=== PATIENT | male | born 1950 | race Caucasian/White ===

== ENCOUNTER 2024-11-14 18:21 | Outpatient (REF) | payer MEDICARE, SELFPAY ==
[2024-11-14 20:56] LABS: Abs Immature Grans 0.01 10^3/uL (0.0-0.06); HCT 39.4 % (40.0-50.0); HGB 13.6 g/dL (13.5-17.5); Immature Grans % 0.2 %; MCH 29.6 pg (27.0-33.0); MCHC 34.5 % (32.0-36.0); MCV 86 fL (80-95); MPV 11.1 fL (8.0-11.0); Platelet Count 126 10^3/uL (130-400); RBC 4.59 10^6/uL (4.36-5.78); RDW 12.6 % (11.8-14.1); RDW-SD 39.3 fL; WBC 4.44 10^3/uL (4.4-10.8)
[2024-11-14 21:20] LABS: Hemoglobin A1C 11.9 % (<5.7)
[2024-11-14 21:35] LABS: ALT 46 U/L (16-63); AST 35 U/L (15-37); Albumin 3.8 g/dL (3.4-5.0); Alkaline Phosphatase 78 U/L (46-116); Anion Gap 5.9 mmol/L (3-11); BUN 22 mg/dL (7-18); Bilirubin, Total 0.7 mg/dL (0.2-1.0); CO2 27.1 mmol/L (21.0-32.0); Calcium 8.9 mg/dL (8.5-10.1); Calculated LDL 89 mg/dL (<100); Chloride 101 mmol/L (98-107); Cholesterol 170 mg/dL (<200); Estimated GFR 44.65 (mL/min/1.73m2); Folate > 20.0 ng/mL (8.6-20.0); HDL Cholesterol 36 mg/dL (>or=40); Potassium 4.2 mmol/L (3.5-5.1); Sodium 134 mmol/L (136-145); TSH (W/Ref FT4) 1.52 uIU/mL (0.36-3.74); Total Protein 7.3 g/dL (6.4-8.2); Triglyceride 227 mg/dL (<150); Vitamin B12 707 pg/mL (193-986)
[2024-11-14 21:36] LABS: Glucose 399 mg/dL (74-106)
[2024-11-18 09:59] LABS: Syphilis Serology (RPR) Negative (Negative)
== END 2024-11-14 18:22 | disposition home or self-care (01) ==
LOC: NCHCN 18:21
PROVIDERS: Visit Provider Family Medicine
DX: E11.65 Type 2 diabetes mellitus with hyperglycemia (principal)
CPT/HCPCS: 80053; 80061; 82607; 82746; 83036; 84443; 85025; 86592

== ENCOUNTER 2025-01-24 21:33 | Outpatient (REF) | payer MEDICARE, SELFPAY ==
[2025-01-24 22:16] LABS: COMMENT (LAB VIEW ONLY) 64.69 mg/dL
[2025-01-24 22:18] LABS: Microalb ug/mg Crea 151.8 ug/mg Cr
== END 2025-01-24 21:34 | disposition home or self-care (01) ==
LOC: NCHCN 21:33
PROVIDERS: Visit Provider Family Medicine
DX: E11.65 Type 2 diabetes mellitus with hyperglycemia (principal)
CPT/HCPCS: 82043; 82570